=== PATIENT | female | born 1985 | race Caucasian/White ===

== ENCOUNTER 2018-04-18 13:08 | Emergency (ER) | payer MEDICAID, OTHER ==
[2018-04-18 13:37] VITALS: BP 181/113; PULSE 95; RESP 18; TEMP 98.7; O2SAT 100
[2018-04-18] MEDS ORDERED: Tdap Vaccine 0.5 ml Vial (10-64 yrs) IM ONE (13:46)
[2018-04-18] MEDS ORDERED: Bacitracin 500 Units/gm Oint Foilpak UD TOP STA (13:48)
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
[2018-04-18] MEDS ORDERED: Bacitracin 500 Units/gm Oint Foilpak UD ONE (14:07)
== END 2018-04-18 14:12 | disposition home or self-care (01) ==
LOC: C.ER 13:08
DX: S61.213A Laceration without foreign body of left middle finger without damage to nail, initial encounter (principal); W26.0XXA Contact with knife, initial encounter; E11.9 Type 2 diabetes mellitus without complications; I10 Essential (primary) hypertension

== ENCOUNTER 2018-05-28 11:53 | Emergency (ER) | payer MEDICAID ==
[2018-05-28] MEDS ORDERED: Sodium Chloride 0.9% 500 ML IV ONE ×2 (12:49→13:01)
[2018-05-28] MEDS ORDERED: DiphenhydrAMINE 50 mg/ml Inj IVP STA (12:50)
[2018-05-28] MEDS ORDERED: DiphenhydrAMINE 50 mg/ml Inj ONE (13:00)
[2018-05-28 13:22] LABS: BASO % 0.5 % (0.0-2.0); EOS # 0.1 K/uL (0.0-0.7); EOS % 1.4 % (0.0-4.0); HEMOGLOBIN 11.5 g/dL (11.0-16.0); LYMPH # 1.6 K/uL (1.0-4.3); LYMPH % 21.3 % (20.0-40.0); MEAN CELL VOLUME 89.1 fL (81.0-99.0); MEAN CORPUSCULAR HEMOGLOBIN 31.1 pg (27.0-31.0); MEAN CORPUSCULAR HGB CONC 34.9 g/dL (33.0-37.0); MEAN PLATELET VOLUME 8.7 fL (7.2-11.7); MONO # 0.3 K/uL (0.0-0.8); MONO % 3.5 % (0.0-10.0); NEUT # 5.6 K/uL (1.8-7.0); NEUT % 73.3 % (50.0-75.0); RBC 3.69 Mil/uL (3.80-5.20); RED CELL DISTRIBUTION WIDTH 12.4 % (11.5-14.5); WHITE BLOOD COUNT 7.7 K/uL (4.8-10.8)
[2018-05-28 13:37] LABS: ALB/GLOB RATIO 1.3 (1.0-2.1); ALBUMIN 4.3 g/dL (3.5-5.0); ALT/SGPT 17 U/L (9-52); AST/SGOT 24 U/L (14-36); BLOOD UREA NITROGEN 17 mg/dL (7-17); CALCIUM 9.3 mg/dl (8.6-10.4); GFR NON-AFRICAN AMERICAN > 60
--- NOTE | 2018-05-28 13:47 | RAD ---
HISTORY: COUGH COMPARISON: No prior. TECHNIQUE: Chest, one view. FINDINGS: Examination limited by habitus and hypoinflation. LUNGS: No focal consolidation. Please note that chest x-ray has limited sensitivity for the detection of pulmonary masses. PLEURA: No significant pleural effusion identified. No definite pneumothorax . CARDIOVASCULAR: The cardiomediastinal silhouette appears within normal limits of size. No significant atherosclerotic calcification present. OSSEOUS STRUCTURES: No acute osseous abnormality identified. VISUALIZED UPPER ABDOMEN: Unremarkable. OTHER FINDINGS: None. IMPRESSION: Hypoinflation.
[2018-05-28 13:50] VITALS: RESP 18
[2018-05-28 14:04] LABS: HCG,QUALITATIVE URINE NEGATIVE (NEGATIVE)
[2018-05-28 14:06] LABS: SQUAMOUS EPITHIAL 39 /hpf (0-5); URINE AMORPHOUS SEDIMENT RARE /ul (<OCC); URINE BACTERIA OCC (<OCC); URINE BILIRUBIN NEGATIVE (NEGATIVE); URINE BLOOD 2+ (NEGATIVE); URINE CLARITY Hazy (Clear); URINE COLOR Yellow (YELLOW); URINE GLUCOSE (UA) NORMAL (Normal); URINE LEUKOCYTE ESTERASE NEG Leu/uL (Negative); URINE PROTEIN 2+ mg/dL (NEGATIVE); URINE UROBILINOGEN NORMAL mg/dL (0.2-1.0)
[2018-05-28] MEDS ORDERED: Morphine 4 MG/ML VIAL ONE (14:46)
--- NOTE | 2018-05-28 15:12 | C.PDOC ---
History Of Present Illness 32 year old female presents to the ED for evaluation of generalized body aches, headache, lightheadedness, nausea, vomiting and non-productive cough for 1 week. Patient has history of migraines, and states her current symptoms feel similar. Patient denies fever, chills, neck pain/stiffness, abdominal pain, dysuria, or sick contacts. Time Seen by Provider: 05/28/18 12:43 Chief Complaint (Nursing): Dizziness/Lightheaded History Per: Patient History/Exam Limitations: no limitations Onset/Duration Of Symptoms: Days (1 week) Current Symptoms Are (Timing): Still Present Additional History Per: Patient Past Medical History Reviewed: Historical Data, Nursing Documentation, Vital Signs Vital Signs: Last Vital Signs Temp 98.6 F 05/28/18 13:49 Pulse 108 H 05/28/18 13:49 Resp 18 05/28/18 13:49 BP 147/96 H 05/28/18 13:49 Pulse Ox 98 05/28/18 13:49 - Medical History PMH: Asthma, Back Problems, Bronchitis, Diabetes, HTN, Migraine Surgical History: Appendectomy - [facility] Procedures INJECT/INFUSE NEC (05/28/14) Family History: States: Unknown Family Hx - Social History Hx Tobacco Use: No Hx Alcohol Use: No Hx Substance Use: No - Immunization History Hx Tetanus Toxoid Vaccination: No Hx Influenza Vaccination: No Hx Pneumococcal Vaccination: No Review Of Systems Constitutional: Negative for: Fever, Chills Respiratory: Positive for: Cough. Negative for: Sputum Gastrointestinal: Positive for: Nausea, Vomiting. Negative for: Abdominal Pain Genitourinary: Negative for: Dysuria Musculoskeletal: Positive for: Other (generalized body aches ) Neurological: Positive for: Headache, Other (lightheadedness) Physical Exam - Physical Exam Appears: Non-toxic, No Acute Distress, Other (appears to be in mild pain, anxious ) Skin: Normal Color, Warm, Dry Head: Atraumatic, Normacephalic Eye(s): bilateral: Normal Inspection Oral Mucosa: Moist Neck: Supple Chest: Symmetrical, No Deformity, No Tenderness Cardiovascular: Rhythm Regular, No Murmur Respiratory: Normal Breath Sounds, No Rales, No Rhonchi, No Wheezing Gastrointestinal/Abdominal: Soft, No Tenderness, No Guarding, No Rebound Extremity: Normal ROM, Capillary Refill (less than 2 seconds ) Neurological/Psych: Oriented x3, Normal Speech, Normal Cognition Gait: Steady ED Course And Treatment - Laboratory Results Result Diagrams: 05/28/18 13:12 05/28/18 13:12 O2 Sat by Pulse Oximetry: 98 (on RA) Pulse Ox Interpretation: Normal - Other Rad CXR X-Ray: Viewed By Me, Read By Radiologist Interpretation: HISTORY: COUGH. COMPARISON: No prior. TECHNIQUE: Chest, one view. FINDINGS: Examination limited by habitus and hypoinflation. LUNGS: No focal consolidation. Please note that chest x-ray has limited sensitivity for the detection of pulmonary masses. PLEURA: No significant pleural effusion identified. No definite pneumothorax . CARDIOVASCULAR: The cardiomediastinal silhouette appears within normal limits of size. No significant atherosclerotic calcification present. OSSEOUS STRUCTURES: No acute osseous abnormality identified. VISUALIZED UPPER ABDOMEN: Unremarkable. OTHER FINDINGS: None. IMPRESSION: Hypoinflation. Progress Note: Bloodwork, urinalysis, CXR, and Flu swab ordered and reviewed. Patient given Toradol IVP , Reglan IV, and IV Fluids. Patient continues to complain of pain. Patient given Morphine IVP. On reassessment, patient is resting comfortably, showing no signs of distress and reports an improvement in her symptoms. Patient is stable for discharge with Rx for Fioricet PO, Tessalone Perles PO, and Naproxen PO. Advised to follow up with her PMD within 1-2 days for further evaluation. Disposition Counseled Patient/Family Regarding: Studies Performed, Diagnosis, Need For Followup, Rx Given - Disposition Referrals: Lev Bermudez [Medical Doctor] - Disposition: HOME/ ROUTINE Disposition Time: 15:10 Condition: STABLE Additional Instructions: FOLLOW UP WITH YOUR DOCTOR IN 1-2 DAYS DRINK PLENTY OF FLUIDS USE MEDICATIONS NEEDED RETURN TO EMERGENCY ROOM IF SYMPTOMS WORSEN SEGUIR CON YAP MDICO EN 1-2 TOBAR BEBER MUCHO LQUIDO UTILICE MEDICAMENTOS RODRIGO SE NECESITE VUELVA A LA DANIA DE EMERGENCIA SI LOS SNTOMAS SE HACEN PEOR Prescriptions: Acetaminophen/Butalbital/Caf [Fioricet] 1 tab PO TID PRN #20 tab PRN Reason: Headache Benzonatate [Tessalon Perles] 100 mg PO BID PRN #15 sgl PRN Reason: Cough Naproxen 375 mg PO BID PRN #20 tablet PRN Reason: pain Instructions: Viral Syndrome (DC) Forms: [employer] [employer] [facility] (Greenlandic) Print Language: GIBRALTARIAN - Clinical Impression Clinical Impression: Migraine, Viral syndrome - Scribe Statement The provider has reviewed the documentation as recorded by the Scribe (Becky Thurman) Provider Attestation: All medical record entries made by the Scribe were at my direction and personally dictated by me. I have reviewed the chart and agree that the record accurately reflects my personal performance of the history, physical exam, medical decision making, and the department course for this patient. I have also personally directed, reviewed, and agree with the discharge instructions and disposition.
[2018-05-28 15:37] VITALS: BP 155/99; PULSE 98; TEMP 98.1
[2018-05-28 16:20] VITALS: O2SAT 98
--- NOTE | 2018-05-29 19:46 | CARD ---
APPROVED REPORT Date of service: 05/28/2018 EKG Measurement Heart [id number] <Conclusion> Sinus tachycardia Nonspecific T wave abnormality Abnormal ECG
== END 2018-05-28 15:50 | disposition home or self-care (01) ==
LOC: C.ER 11:53
DX: G43.909 Migraine, unspecified, not intractable, without status migrainosus (principal); B34.9 Viral infection, unspecified
CPT/HCPCS: 71045; 80053; 81001; 82948; 84703; 85025; 87804; 93005; 96374; 96375; 99285; J1200; J1885; J2270; J2765; J7040